=== PATIENT | female | born 1945 | race Caucasian/White ===

== ENCOUNTER → 2018-07-25 | Outpatient (CLI) | payer MEDICARE ==
[~2018-07-25] MED LIST: No meds per pt.
[2018-07-25 09:38] LABS: BASOPHILS # (AUTO) 0.04 x10^3/uL (0-0.1); BASOPHILS % (AUTO) 1 % (0-1); EOSINOPHILS # (AUTO) 0.04 x10^3/uL (0-0.4); EOSINOPHILS % (AUTO) 1 % (1-7); LYMPHOCYTES # (AUTO) 1.06 x10^3/uL (1-3.4); LYMPHOCYTES % (AUTO) 26 % (22-44); MD NO; MEAN CORPUSCULAR HEMOGLOBIN 30.5 pg (27.0-34.8); MEAN CORPUSCULAR HGB CONC 32.1 g/dL (32.4-35.8); MEAN CORPUSCULAR VOLUME 94.8 fL (80-100); MEAN PLATELET VOLUME 7.6 fL (7.4-10.4); MONOCYTES # (AUTO) 0.51 x10^3/uL (0.2-0.8); MONOCYTES % (AUTO) 12 % (2-9); NEUTROPHILS # (AUTO) 2.52 x10^3/uL (1.8-6.8); NEUTROPHILS % (AUTO) 60 % (42-75); PLATELET COUNT 218 x10^3/uL (130-400); RED BLOOD COUNT 4.45 x10^6/uL (3.82-5.3); RED CELL DISTRIBUTION WIDTH 13.1 % (9.6-15.2)
[2018-07-25 09:49] LABS: ANION GAP 3 mmol/L (5-15); CALCIUM 9.1 mg/dL (8.5-10.1); CHLORIDE 106 mmol/L (98-107); CREATININE 0.77 mg/dL (0.55-1.02)
== END | disposition home or self-care (01) ==
LOC: STAR 08:25
PROVIDERS: ATTEND Orthopaedic Surgery
DX: M17.0 Bilateral primary osteoarthritis of knee (principal); Z96.642 Presence of left artificial hip joint; Z96.641 Presence of right artificial hip joint
CPT/HCPCS: 36415; 80048; 85025; 87081; 93005

== ENCOUNTER 2018-08-06 05:48 | Observation (INO) | payer MEDICARE ==
[~2018-08-06] VITALS: Ht 172.7 cm; Wt 66.0 kg
[2018-08-06] MEDS ORDERED: LACTATED RINGERS 1,000 ML IV SCH (06:10)
[2018-08-06] MEDS ORDERED: EPINEPHRINE 1 MG/ML, 1ML ONE ×2 (06:17→06:45)
[2018-08-06] MEDS ORDERED: VANCOMYCIN 1,000 MG ONE (06:17)
[2018-08-06] MEDS ORDERED: KETOROLAC 60 MG/2 ML ONE (06:17)
[2018-08-06] MEDS ORDERED: ROPIvacaine/PF 0.2%, 20 ML ONE (06:17)
[2018-08-06] MEDS ORDERED: TRANEXAMIC ACID 100 MG/ML, 10ML ONE (06:17)
[2018-08-06] MEDS ORDERED: SODIUM CHLORIDE 0.9% 50 ML ONE (06:17)
[2018-08-06] MEDS ORDERED: ROPIvacaine/PF 0.5%, 30 ML ONE (06:45)
[2018-08-06] MEDS ORDERED: LIDOCAINE-MPF 2% ,5ML ONE (06:46)
[2018-08-06] MEDS ORDERED: ONDANSETRON ODT 8 MG PO ONE (07:00)
[2018-08-06] MEDS ORDERED: GABAPENTIN 300 MG CAPSULE PO ONE (07:00)
[2018-08-06] MEDS ORDERED: ACETAMINOPHEN 500 MG TABLET PO ONE (07:00)
[2018-08-06] MEDS ORDERED: MEPERIDINE/PF 25MG/0.5ML IVPush PRN (08:30)
[2018-08-06] MEDS ORDERED: FENTANYL PF 100 MCG/2ML IV PRN (08:30)
[2018-08-06] MEDS ORDERED: HYDROmorphone 2 MG/ML, 1ML IVPush PRN (08:30)
[2018-08-06] MEDS ORDERED: OXYcodone 5 MG/5 ML ORAL.SOL UDC PO PRN (08:30)
[2018-08-06] MEDS ORDERED: ONDANSETRON 2MG/ML, 2ML IV PRN ×2 (08:30→09:00)
[2018-08-06] MEDS ORDERED: D5%-0.45% NACL 1,000 ML IV SCH (08:34)
[2018-08-06] MEDS ORDERED: SENNA/DOCUSATE TABLET PO PRN (09:00)
[2018-08-06] MEDS ORDERED: BISACODYL 10 MG SUPP PR PRN (09:00)
[2018-08-06] MEDS ORDERED: FERROUS SULFATE 325 MG TABLET PO SCH (09:00)
[2018-08-06] MEDS ORDERED: PSYLLIUM PACKET PO PRN (09:00)
[2018-08-06] MEDS ORDERED: MULTIVITAMINS/MINERALS TABLET PO SCH (09:00)
[2018-08-06] MEDS ORDERED: HYDROmorphone 1 MG/ML, 1ML INJ IVPush PRN (09:00)
[2018-08-06] MEDS ORDERED: SCOPOLAMINE PATCH, 1.5MG PATCH.TD72 TD SCH (09:00)
[2018-08-06] MEDS ORDERED: MAGNESIUM HYDROXIDE 8%, 30ML UDC PO PRN (09:00)
[2018-08-06] MEDS ORDERED: DOCUSATE 100 MG CAPSULE PO SCH (09:00)
[2018-08-06] MEDS ORDERED: PROMETHAZINE 25 MG/ML, 1ML IM PRN (09:00)
[2018-08-06] MEDS ORDERED: TRANEXAMIC ACID 1,000 MG in SODIUM CHLORIDE 0.9% 100 ML IVPB ONE (09:00)
[2018-08-06] MEDS ORDERED: DIAZEPAM 5 MG TABLET PO PRN (09:00)
[2018-08-06] MEDS ORDERED: ZOLPIDEM 5MG TABLET PO PRN (09:00)
[2018-08-06] MEDS ORDERED: ASCORBIC ACID 500 MG TABLET PO SCH (09:00)
[2018-08-06] MEDS ORDERED: DIPHENHYDRAMINE 25 MG CAPSULE PO PRN (09:00)
[2018-08-06] MEDS ORDERED: HYDROcodone/APAP 5/325 TABLET PO PRN (09:00)
[2018-08-06] MEDS ORDERED: PROMETHAZINE 12.5 MG SUPP PR PRN (09:00)
[2018-08-06] MEDS ORDERED: POLYETHYLENE GLYCOL 17 GM PACKET PO PRN (09:00)
[2018-08-06] MEDS ORDERED: KETOROLAC 30 MG/1 ML IV SCH (09:00)
[2018-08-06] MEDS ORDERED: ALUMINUM/MAG/SIMETHICONE 30 ML UDC PO PRN (09:00)
[2018-08-06] MEDS ORDERED: ACETAMINOPHEN 650 MG/20.3 ML UDC PO PRN (09:00)
[2018-08-06] MEDS ORDERED: ONDANSETRON 4 MG TABLET PO PRN (09:00)
[2018-08-06] MEDS ORDERED: TAMSULOSIN 0.4 MG CAP.ER.24H PO SCH (09:00)
[2018-08-06] MEDS ORDERED: DEXAMETHASONE 4 MG/ML, 1ML IVPush SCH (09:00)
[2018-08-06] MEDS ORDERED: CALCIUM/VITAMIN D3 250-125 TABLET PO SCH (12:00)
[2018-08-06 14:15] VITALS: BP 108/63
[2018-08-06] MEDS ORDERED: CEFAZOLIN PMX 1GM/50ML 50 ML IVPB SCH (15:30)
[2018-08-06] MEDS ORDERED: ASPIRIN 81 MG TABLET EC PO SCH (18:00)
== END 2018-08-06 15:20 | disposition home or self-care (01) ==
LOC: OUT 05:48 → ORIP 08:34 → 4NOR 10:04
PROVIDERS: ADMIT Orthopaedic Surgery; ATTEND Orthopaedic Surgery
DX: M17.11 Unilateral primary osteoarthritis, right knee (principal)
CPT/HCPCS: 27447; 73560; 97161; C1713; C1776; G0378; J0171; J1885; J2795; J3490; J7120; Q0162; J3370